=== PATIENT | female | born 1965 ===

== ENCOUNTER 2020-03-24 13:24 | Emergency (ER) | payer MEDICAID ==
[~2020-03-24] VITALS: Ht 147.3 cm; Wt 64.9 kg
[2020-03-24 13:27] VITALS: BP 110/70
[2020-03-24 14:06] LABS: BASOPHILS % (AUTO) 1.1 % (0.0-2.0); EOSINOPHILS % (AUTO) 4.4 % (0.0-3.0); HEMATOCRIT 40.9 % (37.0-47.0); LYMPHOCYTES % (AUTO) 26.2 % (20.0-45.0); MEAN CORPUSCULAR VOLUME 89 FL (80-99); MONOCYTES % (AUTO) 6.1 % (1.0-10.0); NEUTROPHILS % (AUTO) 62.2 % (45.0-75.0); PLATELET COUNT 313 K/UL (150-450); RED BLOOD COUNT 4.58 M/UL (4.20-5.40); RED CELL DISTRIBUTION WIDTH 14.6 % (11.6-14.8); WHITE BLOOD COUNT 13.3 K/UL (4.8-10.8)
[2020-03-24 14:11] LABS: APPEARANCE,URINE CLEAR; BILIRUBIN, URINE NEGATIVE (NEGATIVE); COLOR,URINE PALE YELLOW; GLUCOSE, URINE (UA) NEGATIVE (NEGATIVE); KETONES,URINE NEGATIVE (NEGATIVE); LEUKOCYTE ESTERASE ,URINE NEGATIVE (NEGATIVE); NITRITE,URINE NEGATIVE (NEGATIVE); PH,URINE 8 (4.5-8.0); PROTEIN,URINE NEGATIVE (NEGATIVE); UROBILINOGEN,URINE NORMAL MG/DL (0.0-1.0)
[2020-03-24 14:24] LABS: ANION GAP 14 mmol/L (5-15); BLOOD UREA NITROGEN 7 mg/dL (7-18); CALCIUM 9.2 MG/DL (8.5-10.1); CARBON DIOXIDE 22 MMOL/L (21-32); CHLORIDE 101 MMOL/L (98-107); CREATININE 1.1 MG/DL (0.55-1.30); POTASSIUM 3.8 MMOL/L (3.5-5.1); SODIUM 137 MMOL/L (136-145)
[2020-03-24 14:26] LABS: ALANINE AMINOTRANSFERASE 24 U/L (12-78); ALBUMIN 3.2 G/DL (3.4-5.0); ALBUMIN/GLOBULIN RATIO 0.7 (1.0-2.7); ALKALINE PHOSPHATASE 84 U/L (46-116); ASPARTATE AMINO TRANSFERASE 17 U/L (15-37); BILIRUBIN,TOTAL 0.2 MG/DL (0.2-1.0)
--- NOTE | 2020-03-24 14:26 | Emergency Room Report ---
History of Present Illness General Chief Complaint: Abnormal Labs Source: EMS (Cristian Cast) Present Illness HPI 55-year-old female with history of schizophrenia currently controlled with Abilify injection brought in by paramedics due to elevated blood glucose. Patient has been taking care of by a child protective services social worker and an in-home nurse and today's injection of Abilify was not done due to patient elevated blood sugar of 289. Patient reports that she used to take metformin for diabetes however was stopped by her regular doctor 3 months ago after she went to the hospital. Patient reports that her glucose has been within normal limits. Denies any blurry vision, neuropathy, chest pain, shortness of breath, headache and dizziness. Denies any, nausea vomiting, diarrhea. Denies all other comorbidities. Denies tobacco smoke, alcohol intake, drug use. Denies fever and chills. (Cristian Cast) Allergies: Coded Allergies: PENICILLINS (Verified Allergy, Unknown, 03/24/20) COVID-19 Screening Contact w/high risk pt: No Recent Travel to affected area: No Experienced COVID-19 symptoms?: No COVID-19 Testing performed MUSEUM CURATOR: No (Cristian Cast) Patient History Past Medical History: see triage record Past Surgical History: none Pertinent Family History: none Now: No Immunizations: UTD Reviewed Nursing Documentation: PMH: Agreed; PSxH: Agreed (Cristian Cast) Nursing Documentation-PMH Past Medical History: No History, Except For Hx Diabetes: Yes (Cristian Cast) Review of Systems All Other Systems: negative except mentioned in HPI (Cristian Cast) Physical Exam Vital Signs Date Time Temp Pulse Resp B/P (MAP) Pulse Ox O2 Delivery O2 Flow Rate FiO2 03/24/20 13:19 98.6 115 16 108/66 (80) 100 03/24/20 13:27 Room Air Sp02 EP Interpretation: reviewed, normal General Appearance: no apparent distress, alert, GCS 15, non-toxic Head: normocephalic, atraumatic Eyes: bilateral eye normal inspection, bilateral eye PERRL ENT: hearing grossly normal, normal pharynx, no angioedema, normal voice Neck: full range of motion, supple/symm/no masses Respiratory: chest non-tender, lungs clear, normal breath sounds, no rhonchi, no respiratory distress, no retraction, no wheezing, speaking full sentences Cardiovascular #1: regular rate, rhythm, no edema, no murmur Gastrointestinal: normal bowel sounds, non tender, soft, non-distended, no guarding, no rebound Rectal: deferred Genitourinary: no CVA tenderness Musculoskeletal: back normal, normal range of motion, no calf tenderness Neurologic: alert, motor strength/tone normal, oriented x3, sensory intact, responsive, speech normal Psychiatric: judgement/insight normal, memory normal, mood/affect normal, no suicidal/homicidal ideation Skin: no rash Lymphatic: no adenopathy (Cristian Cast) Medical Decision Making PA Attestation All my diagnosis and treatment plans were reviewed ad discussed with my supervising physician Dr. Carver ([facility] Cast) Diagnostic Impression: Primary Impression: Hyperglycemia ER Course 55-year-old female with history of schizophrenia currently controlled with Abilify injection brought in by paramedics due to elevated blood glucose. Patient has been taking care of by a child protective services social worker and an in-home nurse and today's injection of Abilify was not done due to patient elevated blood sugar of 289. Patient reports that she used to take metformin for diabetes however was stopped by her regular doctor 3 months ago after she went to the hospital. Patient reports that her glucose has been within normal limits. Denies any blurry vision, neuropathy, chest pain, shortness of breath, headache and dizziness. Denies any, nausea vomiting, diarrhea. Denies all other comorbidities. Denies tobacco smoke, alcohol intake, drug use. Denies fever and chills. Ddx considered but are not limited to: DKA, hyperglycemia, neuropathy, Vital signs: are WNL, pt. is afebrile H&PE are most consistent with hyperglycemia ORDERS: EKG, Chest XR, DKA order set, metformin ED INTERVENTIONS: NS bolus DISCHARGE: At this time pt. is stable for d/c to home. Will provide printed patient care instructions, and any necessary prescriptions. Care plan and follow up instructions have been discussed with the patient prior to discharge. Take medication as directed, follow with her primary doctor, increase oral hydration, if worsening symptoms return to the emergency room ([facility]ristian Cast EKG Diagnostic Results Rate: normal Rhythm: NSR ST Segments: no acute changes Other Impression No acute ST changes (Cristian Cast) Chest X-Ray Diagnostic Results Chest X-Ray Diagnostic Results : Chest X-Ray Ordered: Yes # of Views/Limited/Complete: 1 View Indication: Other EP Interpretation: Yes PA Xray: Interpretation reviewed, by supervising MD, and agrees with findings. Interpretation: no consolidation, no effusion, no pneumothorax Impression: No acute disease Electronically Signed by: Cristian Garcia PA-C (Cristian Cast) Chest X-Ray Diagnostic Results : Electronically Signed by: Olvin Varma documentation of Xray reviewed by me and is accurate, Noel Carver MD (Noel Carver MD) Last Vital Signs Date Time Temp Pulse Resp B/P (MAP) Pulse Ox O2 Delivery O2 Flow Rate FiO2 03/24/20 13:27 98.2 108 16 110/70 99 Room Air (Cristian Cast) Disposition: HOME, SELF-CARE Condition: Stable Scripts Metformin Hcl* (METFORMIN HCL*) 500 Mg Tablet 500 MG ORAL TWICE A DAY for 30 Days, #60 TAB Prov: Cristian Cast 03/24/20 Patient Instructions: Hyperglycemia, [id number] Additional Instructions: Take medication as directed, follow with her primary doctor, increase oral hydration, if worsening symptoms return to the emergency room Cristian Cast Mar 24, 2020 14:26 Noel Carver MD Mar 25, 2020 00:58
[2020-03-24] MEDS ORDERED: METFORMIN HCL500 M1 ORAL ×2 (14:40→14:59)
--- NOTE | 2020-03-24 14:47 | Diagnostic Imaging Report ---
Procedure: XRAY Chest 1v Reason for study: Chest pain Comparison films: None. FINDINGS: A single one view chest is obtained. Vascularity is normal. The lung gonzalez are clear bilaterally. Cardiac and mediastinal silhouette are within normal limits. CP angles are sharp. The bony thorax appear unremarkable. IMPRESSION: NO ACUTE CARDIOPULMONARY DISEASE.
[2020-03-24 15:04] VITALS: BP 110/70
[2020-03-24] MEDS ORDERED: metFORMIN 500mg tab ORAL SCH (16:30)
== END 2020-03-24 15:04 | disposition home or self-care (01) ==
LOC: EDBD 13:24 → EMR 13:50
DX: E11.65 Type 2 diabetes mellitus with hyperglycemia (principal); Z88.0 Allergy status to penicillin
CPT/HCPCS: 36415; 71045; 80053; 81003; 82009; 83690; 83735; 84484; 85025; 93005; 96360; J7030; Z7502; 99284